=== PATIENT | female | born 2000 | race Two or more races ===

== ENCOUNTER 2024-12-11 09:10 | Outpatient (CLI) | payer OTHER | END 2024-12-11 09:14 | disposition home or self-care (01) | LOC: RAD 09:10 | PROVIDERS: ATTEND Student in an Organized Health Care Education/Training Program | DX: R05.9 Cough, unspecified (principal) ==

== ENCOUNTER 2024-12-16 09:45 | Inpatient (IN) | payer OTHER ==
[~2024-12-16] VITALS: Ht 165.1 cm; Wt 97.1 kg
[2024-12-16 14:10] VITALS: BP 137/84
[2024-12-16 14:25] LABS: RH POSITIVE
[2024-12-23] MEDS ORDERED: CEFAZOLIN SODIUM 1,000 MG VIAL IV SCH (06:00)
[2024-12-23] MEDS ORDERED: CEFAZOLIN SODIUM 1,000 MG VIAL ONE (15:09)
[2024-12-23] MEDS ORDERED: CELECOXIB 200 MG CAPSULE PO STA (16:29)
[2024-12-23] MEDS ORDERED: GABAPENTIN 100 MG CAPSULE PO SCH (17:00)
[2024-12-23] MEDS ORDERED: MORPHINE SULFATE 4 MG/ML VIAL IV ONE (17:00)
[2024-12-23] MEDS ORDERED: RINGERS SOLUTION,LACTATED 1,000 ML IV SCH (17:00)
[2024-12-23] MEDS ORDERED: CELECOXIB 200 MG CAPSULE PO ONE (17:39)
[2024-12-23] MEDS ORDERED: GABAPENTIN 100 MG CAPSULE PO ONE (17:39)
[2024-12-23] MEDS ORDERED: ACETAMINOPHEN 500 MG GEL..CAP PO SCH (18:00)
[2024-12-23] MEDS ORDERED: ONDANSETRON HCL 2 MG/ML VIAL IV SCH (18:00)
[2024-12-23 19:11] VITALS: BP 137/84
[2024-12-23 19:35] LABS: HEMATOCRIT 43.9 % (36.0-45.00); HEMOGLOBIN 13.9 g/dL (12.0-15.00); MEAN CELL VOLUME 77.1 fL (80.00-100.00); MEAN CORPUSCULAR HEMOGLOBIN 24.4 pg (27.00-32.0); MEAN CORPUSCULAR HGB CONC 31.7 g/dl (32.0-36.0); PLATELET COUNT 525 K/uL (150-450); RED CELL DISTRIBUTION WIDTH 16.9 % (11.5-14.5)
[2024-12-23 19:46] LABS: CALCIUM 8.5 mg/dL (8.5-10.1); CREATININE SERUM 0.7 mg/dL (0.55-1.02); GFR 101.15; POTASSIUM 4.11 mEq/L (3.5-5.1)
[2024-12-23 21:37] LABS: HEMATOCRIT 39.3 % (36.0-45.00); HEMOGLOBIN 13.3 g/dL (12.0-15.00); MEAN CELL VOLUME 74.9 fL (80.00-100.00); MEAN CORPUSCULAR HEMOGLOBIN 25.2 pg (27.00-32.0); MEAN CORPUSCULAR HGB CONC 33.7 g/dl (32.0-36.0); RED BLOOD COUNT 5.25 M/uL (4.00-6.00); RED CELL DISTRIBUTION WIDTH 16.8 % (11.5-14.5)
[2024-12-23 21:38] LABS: PLATELET COUNT 494 K/uL (150-450)
[2024-12-24 02:06] VITALS: BP 139/88
[2024-12-24 06:32] LABS: HEMATOCRIT 39.2 % (36.0-45.00); MEAN CELL VOLUME 75.5 fL (80.00-100.00); MEAN CORPUSCULAR HGB CONC 33.1 g/dl (32.0-36.0); PLATELET COUNT 430 K/uL (150-450); RED BLOOD COUNT 5.18 M/uL (4.00-6.00); RED CELL DISTRIBUTION WIDTH 16.8 % (11.5-14.5)
[2024-12-24 07:22] LABS: CALCIUM 8.1 mg/dL (8.5-10.1); CREATININE SERUM 0.6 mg/dL (0.55-1.02); GFR 120.84; POTASSIUM 4.47 mEq/L (3.5-5.1)
[2024-12-24 08:08] VITALS: BP 129/84
[2024-12-24 16:00] VITALS: BP 125/80
== END 2024-12-24 20:20 | disposition home or self-care (01) | DRG 743 ==
LOC: OB/GYN 12-23 07:21 → O/R 12-23 07:21 → SURH 12-23 09:45 → OB/GYN 12-23 16:50
PROVIDERS: ADMIT Obstetrics & Gynecology Gynecology; ATTEND Obstetrics & Gynecology Gynecology
PROC: 0UB90ZZ Excision of Uterus, Open Approach (ICD-10-PCS; principal; 2024-12-23 10:15)
DX: D25.1 Intramural leiomyoma of uterus (principal); E66.9 Obesity, unspecified; F17.200 Nicotine dependence, unspecified, uncomplicated